=== PATIENT | female | born 1935 ===

== ENCOUNTER → 2017-07-04 | Emergency (ER) | payer OTHER ==
[~2017-07-04] VITALS: Ht 152.4 cm; Wt 77.1 kg
[~2017-07-04] MED LIST: GLUCOPHAGE XR500 MG; NORVASC2.5 MG; SIMETHICONE80 MG PO; ZANTAC300 MG PO
== END | disposition home or self-care (01) ==
LOC: ER 12:11
DX: K29.00 Acute gastritis without bleeding (principal); R10.13 Epigastric pain